=== PATIENT | female | born 1980 | race Caucasian/White ===

== ENCOUNTER 2017-03-24 03:51 | Inpatient (IN) | payer OTHER ==
[~2017-03-24] VITALS: Ht 157.5 cm; Wt 69.4 kg
--- NOTE | 2017-03-24 04:35 | History & Physical ---
General Information and HPI MD Statement: I have seen and personally examined LUCY KIMBROUGH and documented this H&P. The patient is a 37 year old female at [40] weeks and [6] days gestation who presented with a chief complaint of [ctx/labor]. Source of Information: patient Exam Limitations: no limitations History of Present Illness: 37 year old @ 40+6 weeks. Active labor. 8cm upon arrival. h/o x 4 without complications. remarkable for AMA, grandmultip, tobacco use, h /o asthma, GDM - well controlled and non compliant with f/u but last HgbA1C wnl, h/o PTD at 35 w and LEEP. 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 History: gestational diabetes Past Pregnancies Past Pregnancies: Date of Delivery: x 4, largest 7'3" but delivered all at 38 weeks or less Medical History Blood Transfusion Hx: No Neurological: NONE EENT: NONE Cardiovascular: NONE Respiratory: asthma Gastrointestinal: NONE Hepatic: NONE Renal: NONE Musculoskeletal: sciatica, seen at [facility] Psychiatric: NONE Endocrine: gestational diabetes Blood Disorders: NONE Cancer(s): NONE SHIP CAPTAIN/Reproductive: NONE Surgical History Pertinent Surgical History: none Review of Systems Review of Systems Constitutional: Reports: no symptoms. EENTM: Reports: no symptoms. Cardiovascular: Reports: no symptoms. Respiratory: Reports: no symptoms. GI: Reports: no symptoms. Genitourinary: Reports: see HPI. Musculoskeletal: Reports: no symptoms. Skin: Reports: no symptoms. Neurological/Psychological: Reports: no symptoms. Hematologic/Endocrine: Reports: no symptoms. Immunologic/Allergic: Reports: no symptoms. Exam & Diagnostic Data Obstetric Exam Wgt Gained During : 15 Pelvimetry: proven to 7'3" Dilation (cm): 8 Effacement (%): 90 Station: -3 Membranes: intact Fluid: unknown Fundal Height (cm): 40 Multiple Gestation? No Contractions: q5 Infant #1 - FHR Baseline: 130 Category: 1 Estimated Weight: 7 by Kota's Presentation: vtx by Kota's Patient for Induction? No Physical Exam General Appearance Alert, Oriented X3, Cooperative, No Acute Distress Skin No Rashes, No Breakdown, No Significant Lesion HEENT Atraumatic, PERRLA, EOMI Neck Supple, No JVD Cardiovascular Regular Rate Lungs Normal Air Movement Abdomen Normal Bowel Sounds, Soft, No Tenderness, gravid Neurological Normal Gait, Normal Speech, Strength at 5/5 X4 Ext, Normal Tone, Sensation Intact Extremities No Clubbing, No Cyanosis, No Edema Vascular Normal Pulses Reproductive (FEMALE) Normal female genitalia Labs Blood Type & Rh: B+ Antibody Screen: neg Hct/Hgb & Platelets #1: 13.3 38.7 236 Hct/Hgb & Platelets #2: 10.7 34 200 Rubella: NONIMMUNE VDRL #1: NEG VDRL #2: NEG HbsAg: NEG HIV #1: NEG HIV #2 NEG 1 Hr P 3 Hr P 162 186 151 Group B Strep: NEG Initial Ultrasound: 12.1W Anatomy Ultrasound: 20.2 ?SLIGHTLY LARGER STOMACH, MALE, ONE ANT MYOMA, F/U 24W,NL STOMACH, Ultrasound for EFW: 55% AT 36 W Genetic Testing: NORMAL MAT T21 Assessment/Plan Assessment/Plan: 37 YEAR OLD . ACTIVE LABOR . AMA: NEG MAT T21 GDM - NONCOMPLIANT WITH FOLLOW UP. ANTICIPATE . RUBELLA NON IMMUNE WILL VAX PP. As Ranked By This Provider Problem List: 1. Core Measures/Miscellaneous Venous Thromboembolism VTE Risk Factors: / VTE Contraindications: No Contraindications VTE Diagnosis: No Beta Mariely Is Beta Mariely a Home Med? No Antibiotics Is Patient on Antibiotics? No Attending MD Review Statement Attending Statement Attending MD Statement: examined this patient, discussed with family, discussed w/nursing
[2017-03-24 04:41] LABS: ABSOLUTE BASOPHIL COUNT 0 /CUMM (0.0-0.2); ABSOLUTE EOSINOPHIL COUNT 0.1 /CUMM (0.0-0.7); ABSOLUTE GRANULOCYTE CT 10.3 /CUMM (1.4-6.5); ABSOLUTE LYMPH COUNT 2.8 /CUMM (1.2-3.4); ABSOLUTE MONOCYTE COUNT 0.9 /CUMM (0.10-0.60); BASOPHIL % 0.3 % (0.0-2.0); GRANULOCYTE % 72.3 % (42.2-75.2); HEMATOCRIT 32.1 % (37-47); MEAN CORPUSCULAR HGB 32.2 PG (27.0-31.0); MEAN CORPUSCULAR VOLUME 94.8 FL (81.0-99.0); MEAN PLATELET VOLUME 7.6 FL (7.4-10.4); PLATELET COUNT 209 /CUMM (130-400); RBC DISTRIBUTION WIDTH 14.4 % (11.5-14.5); RED BLOOD CELL CT 3.39 /CUMM (4.20-5.40); WHITE BLOOD CELL COUNT 14.2 /CUMM (4.8-10.8)
--- NOTE | 2017-03-24 06:51 | Labor & Delivery Summary ---
Delivery Summary Vaginal Delivery: Vaginal: spontaneous Episiotomy/Lacerations: Episiotomy/Lacerations: none Placenta: Placenta: spontanteous, normal, 3 vessel, nuchal cord (x_) (nuchal cord 1) Anesthesia: the patient tried nitrous oxide but did not tolerate it due to nausea Baby's Weight: Pending at this time Apgars - 1 Min: 8 Apgars - 5 Min: 9 Additional Comments: The patient progressed to fully dilated and spontaneously ruptured membranes and clear fluid was noted shortly after admission. She had strong desire to push and pushed without competition. The head was delivered and a nuchal cord was reduced. Shoulders and the remainder of the infant were delivered without difficulty. Infant was placed on maternal abdomen. Good cry was noted. was bulb suctioned. Cord was clamped and cut. Infant was further bulb suctioned. The placenta was then delivered intact shortly afterward. Perineum was intact. Fundus was firm and good hemostasis was noted.
[2017-03-25 09:07] LABS: ABSOLUTE BASOPHIL COUNT 0.1 /CUMM (0.0-0.2); ABSOLUTE EOSINOPHIL COUNT 0.1 /CUMM (0.0-0.7); ABSOLUTE GRANULOCYTE CT 9.3 /CUMM (1.4-6.5); ABSOLUTE LYMPH COUNT 3.1 /CUMM (1.2-3.4); ABSOLUTE MONOCYTE COUNT 0.7 /CUMM (0.10-0.60); BASOPHIL % 0.5 % (0.0-2.0); GRANULOCYTE % 70.4 % (42.2-75.2); HEMATOCRIT 30.2 % (37-47); MEAN CORPUSCULAR HGB 32.2 PG (27.0-31.0); MEAN CORPUSCULAR HGB CONC 34.3 G/DL (33.0-37.0); MEAN CORPUSCULAR VOLUME 93.9 FL (81.0-99.0); PLATELET COUNT 191 /CUMM (130-400); RED BLOOD CELL CT 3.22 /CUMM (4.20-5.40); WHITE BLOOD CELL COUNT 13.2 /CUMM (4.8-10.8)
--- NOTE | 2017-03-25 09:11 | PN- Post Delivery/GYN ---
Subjective Subjective: feeling well Review of Systems Constitutional: Reports: no symptoms. Denies: chills, fever. EENTM: Denies: blurred vision, double vision, visual changes. Cardiovascular: Denies: chest pain, edema. Respiratory: Denies: short of breath. Gastrointestinal: Denies: diarrhea, nausea, vomiting. Neurological/Psychological: Denies: anxiety, depressed. Objective Last 24 Hrs of Vital Signs/I&O vss Physical Exam General Appearance Alert, Oriented X3, Cooperative, No Acute Distress Cardiovascular Regular Rate Lungs Clear to Auscultation Abdomen Soft, fundus firm Neurological Normal Gait, Normal Speech, Reflexes 2+ Extremities No Edema Current Medications: Current Medications Sig/[place] Start time Last Medication Dose Route Stop Time Status Admin Acetaminophen 650 MG Q4P PRN 03/24 645 AC PO Docusate Sodium 100 MG BID PRN 03/24 0645 AC 03/24 PO 2230 Hydroxyzine HCl 50 MG AT BEDTIME NEED.. 03/24 0645 AC PO Ibuprofen 800 MG Q6P PRN 03/24 0645 AC 03/25 PO 0845 Magnesium Hydroxide 30 ML DAILY PRN 03/24 0645 AC PO Oxytocin 20 UNITS Q5H 03/24 645 DC Lactated Ringer's 1,000 ML IV 03/24 1144 Senna 374 MG AT BEDTIME NEED.. 03/24 0645 AC PO Last 24 Hrs of Labs/Darin: Laboratory Tests 03/25/17 0815: CBC w Diff Pending, WBC Pending, RBC Pending, Hgb Pending, Hct Pending, MCV Pending, MCH Pending, RDW Pending, Plt Count Pending, MPV Pending, PUBS MCHC Pending Assessment/Plan Assessment/Plan ppd #1 vss afebrile plan d/c home tomorrow Problem List: 1. Attending MD Review Statement Attending Statement Attending MD Statement: examined this patient, discussed with family, discussed with nursing
[2017-03-26] MEDS ORDERED: IBUPROFEN800 M1 PO (10:10)
--- NOTE | 2017-03-26 10:30 | PN- OBGYN ---
Surgical Brief Attending Note Brief Attending Note: no complaints. doing well. ambulating, voiding, tolerating pain and po. minimal lochia. Nursing vssaf NAD a/p ppd2. doing well. routine pp care. discharge to home precautions advised. MMR ordered for rubella nonimmune . f/u 6 weeks
== END 2017-03-26 12:15 | DRG 560 ==
LOC: CBCO 03:51 → GNO 04:10
PROVIDERS: ADMIT Obstetrics & Gynecology
PROC: 10E0XZZ Delivery of Products of Conception, External Approach (ICD-10-PCS; principal; 2017-03-24)
DX: O24.420 Gestational diabetes mellitus in childbirth, diet controlled (principal); O69.81X0 Labor and delivery complicated by cord around neck, without compression, not applicable or unspecified; Z3A.40 40 weeks gestation of pregnancy; Z37.0 Single live birth
CPT/HCPCS: GNOS; 81001

== ENCOUNTER 2017-10-25 20:54 | Emergency (ER) | payer OTHER ==
[~2017-10-25 20:54] MED LIST: IBUPROFEN800 M1 PO
[2017-10-25 21:11] VITALS: BP 123/75
[2017-10-25] MEDS ORDERED: AZITHROMYCIN250 M1 PO (21:33)
--- NOTE | 2017-10-25 21:33 | ED EAR COMPLAINT ---
History of Present Illness General Chief Complaint: Ear Complaints Stated Complaint: PT THINKS SHE HAS A EAR ACHE IN THE RT EAR Source: patient, old records Exam Limitations: no limitations Vital Signs & Intake/Output Vital Signs & Intake/Output Vital Signs Date Time Temp Pulse Resp B/P B/P Pulse O2 O2 Flow FiO2 Mean Ox Delivery Rate 10/25 2110 97.3 92 20 123/75 99 Allergies Coded Allergies: latex (Severe, SKIN SLOUGHING 03/24/17) Penicillins (Intermediate, SWELLING 03/24/17) petrolatum, yellow (Intermediate, BLISTERS 03/24/17) adhesive tape (Mild, RASH 03/24/17) amoxicillin (UNKNOWN 03/24/17) Uncoded Allergies: RED 40 DYE (Intermediate, VOMITING 08/20/12) Reconcile Medications Ibuprofen 800 MG TABLET 800 MG PO Q6P PRN UTERINE CRAMPING Triage Note: PER PT RT EAR PAIN UNABLE TO BE SEEN BY DR UNTIL SATURDAY HAS HAD X 1 MONTH WENT AWAY AFTER A [place]PAK BUT NOW BACK SOUNDS LIKE I AM UNDER WATER NO TEMP Triage Nurses Notes Reviewed? 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 She denies fever, chills, headache, n/v/d, altered mental status, vision/hearing changes, neck stiffness, photophobia, sore throat. Her 7 month year old son has similar symptoms (ear pulling). she is otherwise well. Past History Travel History Traveled to [place] past 21 day No Medical History Any Pertinent Medical History? 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 No Review of Systems Review of Systems Constitutional: Reports: no symptoms. EENTM: Reports: no symptoms. Respiratory: Reports: no symptoms. Cardiovascular: Reports: no symptoms. GI: Reports: no symptoms. Genitourinary: Reports: no symptoms. Musculoskeletal: Reports: no symptoms. Skin: Reports: no symptoms. Neurological/Psychological: Reports: no symptoms. Hematologic/Endocrine: Reports: no symptoms. Immunologic/Allergic: Reports: no symptoms. All Other Systems: Reviewed and Negative Physical Exam Physical Exam General Appearance: well developed/nourished, mild distress Head: atraumatic Eyes: Bilateral: normal appearance. Ears: Left: canal normal. Right: erythema. Nose: normal inspection Mouth/Throat: normal mouth inspection, pharynx normal Neck: normal inspection, supple Cardiovascular/Respiratory: normal breath sounds, regular rate/rhythm Back: normal inspection, normal range of motion Neurologic/Psych: awake, alert, oriented x 3, normal mood/affect Skin: intact, normal color, warm/dry Progress Differential Diagnoses I considered the following diagnoses in my evaluation of the patient: otitis media/externa, meningitis, ruptured TM, meniere's, CVA, pharyngitis, sinusitis Plan of Care: Will discharge patient home with antibiotics and outpatient follow up. Initial ED EKG: none Departure Departure Disposition: HOME OR SELF CARE Condition: Stable Clinical Impression Primary Impression: Acute otitis media Referrals: Moira WATERS,Ck Brady (PCP/Family) Additional Instructions: Follow up with your PCP. If you have new or worsening symptoms return to emergency department. Departure Forms: Customer Survey General Discharge Information Prescriptions: Current Visit Scripts Azithromycin 1 DP PO AD #6 TAB 2 the first day followed by 1 for days 2-5
== END 2017-10-25 21:44 ==
LOC: ERH 20:54
DX: H66.91 Otitis media, unspecified, right ear (principal); Z72.0 Tobacco use